=== PATIENT | female | born 1965 | race Caucasian/White ===

== ENCOUNTER 2019-03-31 08:24 | Emergency (ER) | payer OTHER ==
--- NOTE | 2019-03-31 10:09 | UC ---
Back Pain HPI - HPI Summary HPI Summary: 53 yo female presents with vague pain. She tells me that she has a history of sciatica in her right back/leg for which she is seeing physical therapy. Last night around 1800 she began to feel generally "unwell" and had a mild headache and lightheadedness with pain in her right neck, right shoulder, right arm, right anterior thigh, with numbness in her entire LEFT hand only. These symptoms came on gradually over a few hours. She went to bed and this morning her symptoms were improved, but still present. She went to work today and was telling her coworkers and they suggested she get evaluated. Currently, she tells me that since arriving here around 0830 her symptoms have completely resolved and she feels fine. She has a hx of b/l LE edema and HTN for which she takes lasix. She denies fever, injury, vision changes, weakness, SOB, chest pain , abdominal pain, n/v, dysuria. - History of Current Complaint Chief Complaint: UCGeneralIllness Stated Complaint: ARM/BACK/LEG PAIN Time Seen by Provider: 03/31/19 10:09 Hx Obtained From: Patient Onset/Duration: Sudden Onset Severity Initially: Mild Severity Currently: None Pain Intensity: 4 Pain Scale Used: 0-10 Numeric - Allergies/Home Medications Allergies/Adverse Reactions: Allergies Allergy/AdvReac Type Severity Reaction Status Date / Time Sulfa (Sulfonamide Allergy Hives Verified 03/31/19 08:52 Antibiotics) Home Medications: Home Medications Furosemide TAB* [Lasix TAB*] 10 mg PO DAILY 03/31/19 [History Confirmed 03/31/19 ] Levothyroxine TAB* [Synthroid TAB*] 75 mcg PO DAILY 03/31/19 [History Confirmed 03/31/19] PMH/Surg Hx/FS Hx/Imm Hx Endocrine History: Hypothyroidism Cardiovascular History: Hypertension - Surgical History Surgical History: None - Family History Known Family History: Positive: None - Social History Occupation: Employed Full-time Alcohol Use: None Substance Use Type: None Smoking Status (MU): Never Smoked Tobacco Review of Systems All Other Systems Reviewed And Are Negative: Yes Constitutional: Positive: Negative Skin: Positive: Negative Eyes: Positive: Negative ENT: Positive: Negative Respiratory: Positive: Negative Cardiovascular: Positive: Negative Gastrointestinal: Positive: Negative Genitourinary: Positive: Negative Motor: Positive: Negative Neurovascular: Positive: Negative Musculoskeletal: Positive: Other: - Right shoulder, arm, and anterior thigh pain - resolved Neurological: Positive: Headache - resolved, Numbness - left hand - resolved Psychological: Positive: Negative Physical Exam - Summary Physical Exam Summary: GENERAL: NAD. WDWN. No pain distress. SKIN: No rashes, sores, ulcers, masses, lesions. HEENT: Head: AT/NC. Eyes: PERRLA. EOM intact. Conjunctiva clear without inflammation or discharge. Ears: Hearing grossly normal. TMs intact, no bulging, erythema, or edema. Nose: Nasal mucosa pink and moist. NTTP maxillary and frontal sinus. Throat: Posterior oropharynx without exudates, erythema, or tonsillar enlargement. Uvula midline. NECK: Supple. Nontender. FROM CHEST: CTAB. No r/r/w. No accessory muscle use. Breathing comfortably and in no distress. CV: RRR. Without m/r/g. Pulses intact. Brisk cap refill. No JVD or carotid bruit. No pustile abdominal mass. ABDOMEN: Soft. NTTP. Bowel sounds present MSK: FROM in B/L UEs and LEs with symmetric strength. Mild TTP RIGHT CVA NEURO: A&Ox3. 3 word recall, remote, recent memory, ability to follow 2-step directions, and attention intact. CN: II: Peripheral marcial intact. Vision normal. III, IV, : EOMI. No nystagmus. PERRLA. V: Sensations intact and symmetric. Opens mouth and clenches teeth. VII: No facial asymmetry. Forehead wrinkles. Grins, shuts eyes, frowns, puffs cheeks. VIII: Hearing intact to finger rub. IX, X: Swallows and coughs. Uvula midline. XI: Shrugs shoulders. Turns head against resistance. XII: No tongue deviation [id number] are intact. Gait with normal base. Romberg: maintains balance, no pronator drift. Normal speech. No facial drooping. Reflexes intact. Sensations C4-T1 and L3-S1 intact and symmetric. PSYCH: Age appropriate behavior. Triage Information Reviewed: Yes Vital Signs: Initial Vital Signs Temp 98.2 F 03/31/19 08:53 Pulse 68 03/31/19 08:53 Resp 16 03/31/19 08:53 BP 0/0 03/31/19 08:53 Pulse Ox 100 03/31/19 08:53 Laboratory Tests 03/31/19 10:27 POC Urine Color Yellow POC Urine Clarity Clear POC Urine pH 5.5 POC Ur Specif Lawrence 1.010 POC Urine Protein Negative POC Ur Glucose (UA) Negative POC Urine Ketones Negative POC Urine Blood Negative POC Urine Nitrite Negative POC Urine Bilirubin Negative POC Urine Urobilinogen 0.2 POC U Leukocyte Esteras Negative Vital Signs: Temp Pulse Resp BP Pulse Ox 98.2 F 68 16 131/91 100 03/31/19 08:53 03/31/19 08:53 03/31/19 08:53 03/31/19 08:53 03/31/19 08:53 Vital Signs Reviewed: Yes National Institutes Of Health - NIH Scale Level of Consciousness: Alert/Keenly Responsive Ask Patient the Month and His/Her Age: Both Correct Ask Pt to Open/Close Eyes and It Audit Manager/Release Non-Paretic Hand: Both Correctly Best Gaze (Only Horizontal Eye Movement): Normal Visual Field Testing: No Visual Loss Facial Paresis-Pt to Smile & Close Eyes or Grimace Symmetry: Normal/Symmetrical Motor Function - Right Arm: No Drift-Holds 10 Seconds Motor Function - Left Arm: No Drift-Holds 10 Seconds Motor Function - Right Leg: No Drift-Holds 10 Seconds Motor Function - Left Leg: No Drift-Holds 10 Seconds Limb Ataxia-Must be out of Proportion to Weakness Present: Absent Sensory (Use Pinprick to Test Arms/Legs/Trunk/Face): Normal Best Language (Describe Picture, Name Items): No Aphasia Dysarthria (Read Several Words): Normal Extinction and Inattention: No Abnormality Total Score: 0 Back Pain Course/Dx - Course Course Of Treatment: Her symptoms could be related to MSK pain, but given her history of HTN and her sudden onset of symptoms with associated numbness - there is a suspicion that she suffered a TIA as her symptoms have almost completely resolved. I discussed this with Dr. Addison and she agreed. I discussed with the pt that I have a low suspicion she is having a CVA, but she may have suffered a TIA vs MSK pain. She was agreeable to have a work up for suspected TIA, thus I recommended she go to the ER for further evaluation. - Differential Dx/Diagnosis Provider Diagnosis: Right arm pain, Numbness of left hand, Headache Discharge - Sign-Out/Discharge Documenting (check all that apply): Patient Departure All imaging exams completed and their final reports reviewed: No Studies - Discharge Plan Condition: Stable Disposition: HOME-RECOMMEND TO ED Referrals: Stephen Garcia MD [Primary Care Provider] - Additional Instructions: Please go directly to the ER for further evaluation of your symptoms - Billing Disposition and Condition Condition: STABLE Disposition: Home-Recommend to ED
[2019-03-31 10:38] VITALS: BP 131/91
== END 2019-03-31 10:44 | disposition home health service (06) ==
LOC: UCEAST 08:24
DX: M79.601 Pain in right arm (principal); R20.0 Anesthesia of skin; R51 Headache; E03.9 Hypothyroidism, unspecified; I10 Essential (primary) hypertension; Z88.2 Allergy status to sulfonamides
CPT/HCPCS: 81003; 99212; G0463

== ENCOUNTER 2019-03-31 11:11 | Emergency (ER) | payer OTHER ==
--- NOTE | 2019-03-31 15:55 | ED ---
Upper Extremity Pain - HPI Summary HPI Summary: 53 year old F presenting to [facility] from [facility] with a chief complaint of throbbing right arm pain and left hand tingliness feeling like "pins in hand " since yesterday evening. Patient went to urgent care and had a negative workup however there was a concern for TIA given his reported paresthesia so she was sent to the ED. The patient rates the pain 2/10 in severity. Also reporting cramping in her right upper arm, aggravated by lifting her right arm. Symptoms alleviated by nothing. Patient reports right-sided neck pain, mid back pain. Patient denies left arm pain and weakness. Patient reports Hx sciatica in right leg for which she goes to [facility] physical therapy which has provided short term relief. Patient states that two days ago, she started feeling pain in her legs that she treats her sciatica and thinks that aggravated her back pain. No new weakness or numbness in her legs. No bowel or bladder incontinence. - History of Current Complaint Chief Complaint: EDExtremityUpper Stated Complaint: ARM,NECK,BACK PAIN PER PATIENT Time Seen by Provider: 03/31/19 15:47 Hx Obtained From: Patient Onset/Duration: Started Days Ago - 1, Still Present Timing: Constant Severity Currently: Mild Pain Location: Arm - right Character: Throbbing Aggravating Factor(s): Other - lifting right arm Alleviating Factor(s): Nothing Associated Signs & Symptoms: Positive: Negative - left arm pain, weakness, Other - right-sided and mid neck pain, mid back pain - Allergies/Home Medications Allergies/Adverse Reactions: Allergies Allergy/AdvReac Type Severity Reaction Status Date / Time Sulfa (Sulfonamide Allergy Hives Verified 03/31/19 16:26 Antibiotics) Home Medications: Home Medications Furosemide TAB* [Lasix TAB*] 20 mg PO DAILY 03/31/19 [History Confirmed 03/31/19 ] Levothyroxine TAB* [Synthroid TAB*] 88 mcg PO DAILY 03/31/19 [History Confirmed 03/31/19] PMH/Surg Hx/FS Hx/Imm Hx Endocrine/Hematology History: Reports: Hx Thyroid Disease Cardiovascular History: Denies: Hx Congestive Heart Failure, Hx Hypertension Neurological History: Reports: Other Neuro Impairments/Disorders - hx sciatica - Cancer History Hx Chemotherapy: No Hx Radiation Therapy: No - Surgical History Surgery Procedure, Year, and Place: laparoscopic tubal interruption Infectious Disease History: No Infectious Disease History: Denies: Traveled Outside the [place] in Last 30 Days - Family History Known Family History: Positive: Other - breast CA - Social History Alcohol Use: None Hx Substance Use: No Substance Use Type: Reports: None Hx Tobacco Use: No Smoking Status (MU): Never Smoked Tobacco Review of Systems Musculoskeletal: Negative - left arm pain Positive: Other - right arm pain, right-sided and mid neck pain, mid back pain Neurological: Other - left hand tingliness Negative: Weakness All Other Systems Reviewed And Are Negative: Yes Physical Exam - Summary Physical Exam Summary: Constitutional: Well-developed, obese, Alert. (-) Distressed Skin: Warm, Dry HENT: Normocephalic; Atraumatic Eyes: Conjunctiva normal Neck: Musculoskeletal ROM normal neck. (-) JVD, (-) Stridor Cardio: Rhythm regular, rate normal, Heart sounds normal; Intact distal pulses; Radial pulses are 2+ and symmetric. (-) Murmur Pulmonary/Chest wall: Effort normal. (-) Respiratory distress, (-) Wheezes, (-) Rales Abd: Soft, (-) tenderness, (-) Distension, (-) Guarding, (-) Rebound Musculoskeletal: paraspinal thoracic tenderness, right-sided paraspinal cervical neck tenderness, pain with range of motion of the right arm. Strength 5 out of 5 bilateral upper extremities and bilateral lower extremities Lymph: (-) Cervical adenopathy Neuro: Alert, Oriented x3. Cranial nerves II through XII grossly intact, sensation intact to light touch bilateral upper extremities. Ambulates with steady gait Psych: Mood and affect Normal Triage Information Reviewed: Yes Vital Signs On Initial Exam: Initial Vitals Temp Pulse Resp BP Pulse Ox 99.0 F 69 19 159/116 97 03/31/19 11:14 03/31/19 11:14 03/31/19 11:14 03/31/19 11:14 03/31/19 11:14 Vital Signs Reviewed: Yes Diagnostics - Vital Signs Vital Signs Temp Pulse Resp BP Pulse Ox 03/31/19 15:20 97.1 F 74 16 190/117 99 03/31/19 13:28 97.4 F 65 16 176/95 96 03/31/19 11:14 99.0 F 69 19 159/116 97 - Laboratory Result Diagrams: 03/31/19 16:29 07/16/19 16:29 Lab Statement: Any lab studies that have been ordered have been reviewed, and results considered in the medical decision making process. - EKG 1619 Cardiac Rate: NL - 64 BPM EKG Rhythm: Sinus Rhythm Summary of EKG Findings: An EKG at 16:19 reveals normal sinus rhythm 64 BPM, nml axis, nml intervals. No STEMI. No acute changes. Course/Dx - Course Course Of Treatment: 53-year-old female with a history of sciatica presents with multiple complaints. - Had an episode of fatigue and feeling unwell before was given fluids and checked EKG CBC and CMP as well as troponin all of which are unremarkable. - Regarding back pain patient does not have red flags for emergent cause of her pain. No recent trauma no new neurological symptoms has chronic numbness with ambulation and is working with physical therapy regarding her sciatica. - Regarding right arm pain suspect secondary to musculoskeletal strain patient has paraspinal C-spine tenderness that is atraumatic will try PO medications and reassess. - Patient reported paresthesias of her left palm however had a completely normal neuro exam and history is not suggestive of neurologic cause. I discussed extensively with patient workup including a CT of her brain to rule out a TIA however we have low suspicion at this time for that. Patient given strict return precautions regarding new neurologic symptoms such as weakness numbness tingling and will return to the ED for further workup if these symptoms develop. Patient states her pain is improved with the medications and that she would like to go home she 'll work with her physical therapist regarding her back pain. - Diagnoses Provider Diagnoses: Back pain, Arm pain, Paresthesia Discharge - Sign-Out/Discharge Documenting (check all that apply): Patient Departure - Discharge Patient Received Moderate/Deep Sedation with Procedure: No - Discharge Plan Condition: Stable Disposition: HOME Patient Education Materials: Paresthesia (ED), Back Pain (ED), Arm Pain (ED) Referrals: Stephen Garcia MD [Primary Care Provider] - 2 Days Additional Instructions: Follow up with your primary care provider in 2 days. Return to the Emergency Department for worsening pain, inability to walk, bowel or bladder inconvenience , new weakness, new numbness, or if you are concerned. - Billing Disposition and Condition Condition: STABLE Disposition: Home - Attestation Statements Document Initiated by Scribe: Yes Documenting Scribe: Angelica Linder Provider For Whom Scribe is Documenting (Include Credential): Morgan Ambrose MD Scribe Attestation: I, Angelica Linder, scribed for Morgan Ambrose MD on 03/31/19 at [id number]. Scribe Documentation Reviewed: Yes Provider Attestation: The documentation as recorded by the scribe, Angelica Linder accurately reflects the service I personally performed and the decisions made by me, Morgan Ambrose MD Status of Scribe Document: Viewed
[2019-03-31] MEDS ORDERED: Ibuprofen TAB* 600 MG PO ONE (16:05)
[2019-03-31] MEDS ORDERED: Acetaminophen TAB* 325 MG PO ONE (16:05)
[2019-03-31] MEDS ORDERED: NS 0.9% 1000 ML** 1,000 ML IV ONE (16:17)
[2019-03-31 16:38] LABS: ABS Basophils 0.1 10^3/ul (0-0.2); ABS Eosinophils 0.2 10^3/ul (0-0.6); ABS Monocytes 0.5 10^3/ul (0-0.8); ABS Neutrophils 5.8 10^3/ul (1.5-7.7); Eosinophil % 2.6 %; Hematocrit 37 % (35-47); Hemoglobin 12.8 g/dL (12.0-16.0); Lymphocyte % 23.5 %; Mean Corpuscular HGB Conc 34 g/dL (31-36); Mean Corpuscular Hemoglobin 29 pg (27-31); Mean Corpuscular Volume 84 fL (80-97); Nucleated Red Blood Cells % 0.1; Platelet Count 296 10^3/uL (150-450); Red Blood Count 4.42 10^6 /uL (3.70-4.87); Red Cell Distribution Width 14 % (10-15); White Blood Count 8.7 10^3/uL (3.5-10.8)
[2019-03-31 16:58] LABS: Albumin 4.3 g/dL (3.2-5.2); Albumin/Globulin Ratio 1.3 (1-3); BUN/Creatinine Ratio 19.2 (8-20); Calcium 9.4 mg/dL (8.6-10.3); EGFR African American 93.1 (>60); Globulin 3.2 g/dL (2-4); Potassium 3.7 mmol/L (3.5-5.0); Total Bilirubin 0.9 mg/dL (0.2-1.0); Total Protein 7.5 g/dL (6.4-8.9)
[2019-03-31] MEDS ORDERED: Lactated Ringers 1000 ML Bag* 1,000 ML IV SCH (17:00)
[2019-03-31] MEDS ORDERED: Lidocaine PATCH 5%* 1 PATCH TRANSDERM SCH (17:00)
[2019-03-31 17:52] VITALS: BP 135/71
[2019-03-31] MEDS ORDERED: Lidocaine Patch REMOVE* 1 NOTE MISC SCH (21:00)
== END 2019-03-31 17:52 | disposition home or self-care (01) ==
LOC: ED 11:11
DX: M79.601 Pain in right arm (principal); M54.9 Dorsalgia, unspecified; R20.2 Paresthesia of skin; E07.9 Disorder of thyroid, unspecified; Z88.2 Allergy status to sulfonamides; Z79.899 Other long term (current) drug therapy
CPT/HCPCS: 36415; 80053; 84484; 85025; 93005; 96360; 96361; 99283; A9270-GY